=== PATIENT | male | born 1995 | race Caucasian/White ===

== ENCOUNTER 2018-08-11 18:10 | Emergency (ER) | payer OTHER ==
[~2018-08-11] VITALS: Ht 195.6 cm; Wt 120.2 kg
== END 2018-08-11 20:45 | disposition home or self-care (01) ==
LOC: ER 18:10
DX: Z77.098 Contact with and (suspected) exposure to other hazardous, chiefly nonmedicinal, chemicals (principal)
CPT/HCPCS: 99283